=== PATIENT | male | born 1965 | race Caucasian/White ===

== ENCOUNTER → 2017-04-16 | Day surgery (SDC) | payer OTHER ==
[~2017-04-16] MED LIST: Ketamine 10 mg/mL 20 mL Inj ONE; LISI40TA PO; MULT1CAP33 PO; NEBI20TA2 PO; Propofol 10,000 mCg/mL 20 mL Inj ONE; WARF5TAB7 PO
== END | disposition home or self-care (01) ==
LOC: SOUO 00:59
PROVIDERS: ATTEND Internal Medicine Cardiovascular Disease
DX: I48.1 Persistent atrial fibrillation (principal); I10 Essential (primary) hypertension; G47.33 Obstructive sleep apnea (adult) (pediatric); E66.01 Morbid (severe) obesity due to excess calories; Z68.43 Body mass index [BMI] 50.0-59.9, adult; Z79.01 Long term (current) use of anticoagulants; Z99.89 Dependence on other enabling machines and devices